=== PATIENT | male | born 1970 | race Caucasian/White ===

== ENCOUNTER → 2019-01-04 | Outpatient (CLI) | payer BC | LOC: RAD 11:50 | DX: M48.02 Spinal stenosis, cervical region (principal); M47.817 Spondylosis without myelopathy or radiculopathy, lumbosacral region; I87.8 Other specified disorders of veins ==

== ENCOUNTER → 2019-01-25 | Outpatient (CLI) | payer BC, OTHER | LOC: RAD 12:39 | DX: R91.1 Solitary pulmonary nodule (principal) ==